=== PATIENT | female | born 1995 | race Caucasian/White ===

== ENCOUNTER 2016-06-27 21:01 | Emergency (ER) | payer BC ==
[2016-06-27 21:17] VITALS: BP 126/78
--- NOTE | 2016-06-27 21:48 | UC ---
Throat Pain/Nasal Rodolfo HPI - HPI Summary HPI Summary: onset of severe sore throat and cough yesterday, denies fever or other complaint - History of Current Complaint Chief Complaint: UCGeneralIllness Stated Complaint: THROAT Time Seen by Provider: 06/27/16 21:40 Hx Obtained From: Patient Hx Last Menstrual Period: 06/23/16 ?: No Onset/Duration: Sudden Onset, Lasting Days Severity: Moderate Pain Intensity: 6 Pain Scale Used: 0-10 Numeric Cough: Nonproductive Associated Signs & Symptoms: Positive: Dysphagia, Hoarseness - Epiglottits Risk Factors Epiglottis Risk Factors: Negative - Allergies/Home Medications Allergies/Adverse Reactions: Allergies Allergy/AdvReac Type Severity Reaction Status Date / Time Meningococcal Vaccines Allergy Swelling Verified 06/27/16 21:17 Of Face,Lips,& Throat Home Medications: Home Medications Ascorbic Acid TAB* [Vitamin C TAB*] 500 mg PO DAILY 06/27/16 [History Confirmed 06/27/16] Dextromethorphan-Phenylephrine [Theraflu Severe Cold Mult 20-10-500 mg] 1 vidhya PO ONCE PRN 06/27/16 [History Confirmed 06/27/16] Ibuprofen TAB* [Advil TAB*] 600 mg PO Q6H PRN 06/27/16 [History Confirmed ] Norgestimate-Ethinyl Estradiol [Tri-Sprintec 0.18/0.215/0.25 mg-35 Mcg] 1 tab PO DAILY 06/27/16 [History Confirmed 06/27/16] guaiFENesin ER TAB [Mucinex*] 600 mg PO BID PRN 06/27/16 [History Confirmed ] PMH/Surg Hx/FS Hx/Imm Hx Previously Healthy: Yes Endocrine History Of: Denies: Diabetes Cardiovascular History Of: Denies: Hypertension, Pacemaker/ICD Respiratory History Of: Reports: Asthma - A YOUNG[employer] TEEN. GI/ History Of: Denies: Renal Disease - Surgical History Surgical History: Yes Surgery Procedure, Year, and Place: TONSILECTOMY - Family History Known Family History: Negative: Hypertension, Respiratory Disease - Social History Alcohol Use: Rare Substance Use Type: None Smoking Status (MU): Never Smoked Tobacco Review of Systems Constitutional: Negative Skin: Negative Eyes: Negative ENT: Sore Throat Respiratory: Cough Cardiovascular: Negative Gastrointestinal: Negative Genitourinary: Negative Motor: Negative Neurovascular: Negative Musculoskeletal: Negative Neurological: Negative Psychological: Negative All Other Systems Reviewed And Are Negative: Yes Physical Exam Triage Information Reviewed: Yes Appearance: Well-Nourished, Ill-Appearing, Pain Distress Vital Signs: Initial Vital Signs Temp 98.2 F 06/27/16 21:12 Pulse 64 06/27/16 21:12 Resp 16 06/27/16 21:12 BP 126/78 06/27/16 21:12 Pulse Ox 100 06/27/16 21:12 Vital Signs Reviewed: Yes Eye Exam: Normal Eyes: Positive: Conjunctiva Clear ENT: Positive: Hearing grossly normal, Pharyngeal erythema - an posterior exudate, TMs normal Dental Exam: Normal Neck exam: Normal Neck: Positive: Supple, Nontender, No Lymphadenopathy Respiratory Exam: Normal Respiratory: Positive: Chest non-tender, Lungs clear, Normal breath sounds Cardiovascular Exam: Normal Cardiovascular: Positive: RRR, No Murmur, Pulses Normal Abdominal Exam: Normal Abdomen Description: Positive: Nontender, No Organomegaly, Soft Bowel Sounds: Positive: Present Musculoskeletal Exam: Normal Musculoskeletal: Positive: Strength Intact, ROM Intact, No Edema Neurological Exam: Normal Neurological: Positive: Alert, Muscle Tone Normal Psychological Exam: Normal Psychological: Positive: Normal Response To Family Skin Exam: Normal Throat Pain/Nasal Course/Dx - Course Course Of Treatment: hx obtained, medication reviewed, rapid strep obtained negative, treated for viral pharyngitis - Differential Dx/Diagnosis Differential Diagnosis/HQI/PQRI: Influenza, Laryngitis, Otitis Media, Pharyngitis, Sinusitis, Tonsillitis, URI Provider Diagnoses: pharyngitis. cough Discharge - Discharge Plan Condition: Stable Disposition: HOME Patient Education Materials: Pharyngitis (ED) Additional Instructions: start the prednisone in the morning. 2 tabs daily for 5 days. Ibuprofen or tylenol for pain and fever. Increase your fluid intake and get plenty of rest. Salt water gargles effective for throat pain.
[2016-06-27] MEDS ORDERED: Acetaminoph/Cod 120/12 mg LIQ* 5 ML UDC PO ONE (22:01)
== END 2016-06-27 22:19 | disposition home or self-care (01) ==
LOC: UCCORT 21:01
DX: J02.9 Acute pharyngitis, unspecified (principal); R05 Cough; Z88.7 Allergy status to serum and vaccine
CPT/HCPCS: 87651; 99212; A9270-GY; G0463

== ENCOUNTER 2017-05-10 19:46 | Emergency (ER) | payer BC ==
[2017-05-10 19:59] VITALS: BP 108/71
--- NOTE | 2017-05-10 20:24 | UC ---
Upper Extremity HPI - HPI Summary HPI Summary: 21 female with meds- control, no PMH presents after playing basketball today, small right finger jammed into ball, pt noted @ PIP finger was at 90 angle, hit finger and went back into place, attempted to keep playing however finger dislocated again. + pain bruising @ PIP, slight at MCP, other fingers involved, decreased oil field roustabout strength 5th finger, good with all others. - History of Current Complaint Chief Complaint: UCUpperExtremity Stated Complaint: RT FINGER INJ Time Seen by Provider: 05/10/17 20:07 Hx Obtained From: Patient, Family/Shipping Specialist - boyfriend Hx Last Menstrual Period: 04/29/17 ?: No Onset/Duration: Sudden Onset, Lasting Minutes Severity Initially: Moderate Severity Currently: Moderate - Allergies/Home Medications Allergies/Adverse Reactions: Allergies Allergy/AdvReac Type Severity Reaction Status Date / Time Meningococcal Vaccines Allergy Swelling Verified 05/10/17 19:50 Of Face,Lips,& Throat PMH/Surg Hx/FS Hx/Imm Hx Previously Healthy: Yes - Surgical History Surgical History: Yes Surgery Procedure, Year, and Place: TONSILECTOMY - Family History Known Family History: Negative: Hypertension, Respiratory Disease - Social History Alcohol Use: Occasionally Substance Use Type: None Smoking Status (MU): Never Smoked Tobacco - Immunization History Most Recent Influenza Vaccination: no Review of Systems Musculoskeletal: Arthralgia, Decreased ROM, Edema, Myalgia Is Patient Immunocompromised?: No All Other Systems Reviewed And Are Negative: Yes Physical Exam Triage Information Reviewed: Yes Appearance: Well-Appearing, No Pain Distress, Well-Nourished Vital Signs: Initial Vital Signs Temp 97.5 F 05/10/17 19:51 Pulse 78 05/10/17 19:51 Resp 16 05/10/17 19:51 BP 108/71 05/10/17 19:51 Pulse Ox 99 05/10/17 19:51 Vital Signs Reviewed: Yes Musculoskeletal: Positive: ROM Intact, Strength Limited @ - decreased strength with ext, flexion right small finger, 3/5 in comparison to other fingres, sensation intact to light touch, tenderness over PIP, MCP right small finger, + ecchymosis, swelling at PIP right small finger, Edema @ - PIP right small finger Neurological Exam: Normal Neurological: Positive: Muscle Tone Normal Psychological Exam: Normal Upper Extremity Course/Dx - Course Course Of Treatment: radiograph negative per report, splint placed, follow up with ortho/ sports med within 5-7 days, continue to wear splint for all activities, no sports. - Differential Dx/Diagnosis Provider Diagnoses: sprain, finger Discharge - Discharge Plan Condition: Good Disposition: HOME Prescriptions: Ibuprofen TAB* [Motrin TAB* 600 MG] 600 mg PO Q6H PRN #120 tab PRN Reason: Pain Patient Education Materials: Splint Care (ED), Finger Sprain (ED) Forms: *School Release Referrals: Non Staff,Doctor [Primary Care Provider] - Additional Instructions: - Motrin as needed for pain - Splint at all times, may take off to shower - no basketball until cleared by orthopedist
[2017-05-10] MEDS ORDERED: Ibuprofen TAB* 600 MG PO ONE (20:26)
--- NOTE | 2017-05-10 20:47 | RAD ---
Indication: Dislocation right fifth digit. 3 views of the right fifth digit demonstrates no fracture or dislocation. No other bone or joint abnormality is noted. IMPRESSION: No fracture or dislocation of the right fifth digit.
== END 2017-05-10 21:07 | disposition home or self-care (01) ==
LOC: UCCORT 19:46
DX: S63.636A Sprain of interphalangeal joint of right little finger, initial encounter (principal); W23.0XXA Caught, crushed, jammed, or pinched between moving objects, initial encounter; Y93.67 Activity, basketball; Y92.310 Basketball court as the place of occurrence of the external cause; Z88.7 Allergy status to serum and vaccine
CPT/HCPCS: 73140; 99212; A9270-GY; G0463